=== PATIENT | male | born 1950 | race African-American/Black ===

== ENCOUNTER 2016-07-15 01:32 | Inpatient (IN) ==
[2016-07-15] MEDS ORDERED: ASPIRIN PO STA (01:57)
[2016-07-15 02:37] LABS: MANUAL DIFF NEEDED? NO
[2016-07-15 02:55] LABS: INR 1.02; PROTIME 10.7 Seconds (9.2-11.7); PTT 26.5 Seconds (22.0-36.0)
[2016-07-15] MEDS ORDERED: LASIX IV ONE (02:57)
[2016-07-15 03:04] LABS: BASO% 0.2 % (0.0-0.8); EOS# 0.05 X1000 (0.0-0.7); EOS% 0.4 % (0.0-10.0); HEMATOCRIT 33.8 % (42.0-52.0); IMM GRAN# 0.06 X1000 (0.0-0.04); IMM GRAN% 0.5 % (0.0-0.5); LYMPH# 1.25 X1000 (1.2-3.4); LYMPH% 9.9 % (20.5-51.1); MCH 30.1 PG (27-31); MCHC 32.5 g/dL (33-37); MCV 92.6 FL (81-99); MONO# 1.03 X1000 (0.11-0.59); MONO% 8.2 % (1.7-9.3); MPV 10.3 FL (7.4-10.4); NEUT% 80.8 % (42.2-75.2); PLT 279 X1000 (130-400); RBC 3.65 XMIL (4.7-6.1)
[2016-07-15 03:09] LABS: AGAP 14; ALBUMIN 3.4 g/dL (3.5-5.0); ALKALINE PHOSPHATASE 277 U/L (32-122); BUN 26 mg/dL (8-22); CALCIUM 8.9 mg/dL (8.8-10.2); CHLORIDE 102 mmol/L (98-107); CK PROFILE 67 U/L (24-204); COSMO 289; GOT 123 U/L (10-34); GPT 108 U/L (10-44); MAGNESIUM 1.9 mg/dL (1.5-2.7); POTASSIUM 3.9 mmol/L (3.5-5.1); SODIUM 142 mmol/L (136-145); TCO2 26 mmol/L (25-35); TOTAL BILIRUBIN 0.37 mg/dL (0.20-1.00); TOTAL PROTEIN 6.2 g/dL (6.3-8.3)
[2016-07-15] MEDS ORDERED: MORPHINE ONE (04:47)
[2016-07-15] MEDS ORDERED: MORPHINE IV ONE (04:53)
--- NOTE | 2016-07-15 04:54 | PROVIDER DOCUMENTATION ---
This chart was entered by Leandro Jain Scribe, acting as scribe for Luisito Elias MD. HPI-Respiratory General - General Chief Complaint: Shortness of Breath Stated Complaint: SOB Time Seen by Provider: 07/15/16 02:04 Source: patient, family Allergies/Adverse Reactions: Patient Allergies Allergy/AdvReac Type Severity Reaction Status Date / Time No Known Allergies Allergy Verified 07/15/16 02:14 Home Medications: Home Medication List Medication Instructions Recorded Confirmed Last Taken Type Hydralazine [Apresoline] 25 mg PO Q8H 11/23/13 06/04/15 11/22/13 20:30 History Morphine E.r. [Ms Contin] 35 mg PO Q12HR 11/23/13 06/04/15 05/30/15 History Temazepam 15 mg PO HS PRN 11/23/13 06/04/15 06/04/15 21:00 History Hydrocodone/Acetaminophen [Maxwell 1 mg PO BID 06/04/15 06/04/15 06/04/15 History 10-325 Tablet] Levofloxacin [Levaquin] 750 mg PO DAILY #10 tablet 06/07/15 Unknown Rx Metronidazole [Flagyl] 500 mg PO Q8H #30 tablet 06/07/15 Unknown Rx - History of Present Illness-Resp Nature of Presenting Problem: Pt is a 66 yom who presents to ER with CC of difficulty breathing. Pt reports hx of adrenal cancer, COPD, CHF, and HTN. Pt complains tonight of shortness of breath and difficulty breathing that had a gradual onset. Quality of Pain: reports: none Severity in ED: reports: severe Onset/Duration: reports: just prior to arrival Timing: reports: still present Associated Symptoms: reports: chest pain/soreness, heart racing, hyperventilating, shortness of breath, short of breath, wheezing. denies: cough , dizziness, earache, facial pain, fever/chills, flu-like symptoms, headache, hurts to breathe, lightheadedness, muscle/bodyaches, nasal congestion, nasal drainage, sinus pain, sore throat, sweaty Similar Symptoms Previously?: Yes Recently seen or treated by another doctor?: Yes Review of Systems - Adult - REVIEW OF SYSTEMS - ADULT Constitutional: denies: chills, fever, fatique, night sweats, weight gain, weight loss Eyes: reports: no symptoms reported Ears, Nose, Mouth & Throat: reports: no symptoms reported Cardiovascular: reports: edema. denies: chest pain, heart murmur, irregular heart rate, orthopnea, palpitations, poor circulation, PND, syncope Respiratory: reports: chronic cough, cough, dyspnea on exertion, shortness of breath, wheezing. denies: excessive sputum production, hemoptysis, pleurisy Gastrointestinal: reports: nausea. denies: abdominal pain, hematemesis, constipation, diarrhea, difficulty swallowing, frequent heartburn, poor appetite , rectal bleeding, vomiting Genitourinary: reports: no symptoms reported Musculoskeletal: reports: no symptoms reported Integumentary: reports: no symptoms reported Neurological: reports: no symptoms reported Psychiatric: reports: no symptoms reported Endocrine: reports: no symptoms reported Hematologic/Lymphatic: reports: no symptoms reported Allergic/Immunologic: reports: no symptoms reported All Other Systems: Reviewed and Negative Past History - Adult - PAST MEDICAL HISTORY-ADULT Review of Records: reports: Nursing Assessment Review, Medications Reviewed Cardiovascular: reports: HTN Respiratory: reports: COPD Genitourinary: reports: cancer (stomach, liver) Musculoskeletal: reports: arthritis - PRIOR SURGERIES/PROCEDURES Surgical/Procedure History: reports: hernia repair, orthopedic (extremity) - PRIOR HOSPITALIZATIONS Prior Hospitalizations: reports: for similar symptoms - IMMUNIZATION STATUS Childhood Immunizations: See Nurse Assessment Flu Vaccine: See Nurse Assessment - FAMILY HISTORY Family History: reviewed, not pertinent Physical Exam-General - PHYSICAL EXAM-ADULT Initial Vital Signs Reviewed: Yes - CONSTITUTIONAL General Appearance: appears well, alert, severe distress, thin. negative: no apparent distress, mild distress, moderate distress - EYES Eyes: PERRL/EOMI, pink conjunctivae, fundi clear, no AV nicking - HEAD, EARS, NOSE, MOUTH & THROAT HENMT: normocephalic/atraumatic, moist mucous membranes, normal ENT inspection, TMs normal, pharynx normal - NECK Neck: non-tender, full range of motion, supple, normal inspection - RESPIRATORY Respiratory: chest non-tender, normal breath sounds, no pleuratic chest pain, no respiratory distress, no accessory muscle use, wheezing (diffuse). negative : lungs clear - CARDIOVASCULAR Cardiovascular: normal peripheral pulses, tachycardia, other (HTN (163/117)). negative: regular rate, rhythm, bradycardia, irregularly irregular - GASTROINTESTINAL (ABDOMEN) Abdominal Exam: normal bowel sounds, non tender, soft, no pulsatile mass, hepatomegaly. negative: no organomegaly - MUSCULOSKELETAL Back Exam: normal inspection, no CVA tenderness, no vertebral tenderness, other (4+ saccral pitting edema). negative: CVA tenderness, decreased range of motion , ecchymosis, muscle spasm, swelling, vertebral tenderness Extremity: normal range of motion, non-tender, normal gait, normal inspection, no pedal edema, no calf tenderness, normal capillary refill, swelling (4+ pitting edema bilateral lower extremities). negative: deformity, erythema, inflammation, tenderness - SKIN Integumentary: normal color, normal turgor, warm/dry. negative: abrasion(s), diaphoresis, ecchymosis, erythema, laceration(s), swelling, tenderness, warm - NEUROLOGIC Neurologic: studio model II-XII nml as tested, grossly normal, no motor/sensory deficits . negative: facial droop, focal weakness, motor weakness, sensory deficit - PSYCHIATRIC Psych/Mental Status: normal thought content, normal thought process, oriented x 3, anxious. negative: normal mood/affect Progress - PLAN OF CARE/RESULTS Progress/Plan/Lab Results: Vital Signs - 8 hr 07/15/16 01:38 07/15/16 03:42 Temperature 97.9 F Pulse Rate 102 H 103 H Respiratory Rate 26 H 27 H Blood Pressure 146/116 129/100 O2 Sat by Pulse Oximetry 96 95 Laboratory Results - last 24 hr 07/15/16 07/15/16 07/15/16 02:03 02:03 02:03 WBC 12.62 H RBC 3.65 L Hgb 11.0 L Hct 33.8 L MCV 92.6 MCH 30.1 MCHC 32.5 L RDW Std Deviation 18.0 H Plt Count 279 MPV 10.3 Immature Gran % (Auto) 0.5 Neut % (Auto) 80.8 H Lymph % (Auto) 9.9 L [place] % (Auto) 8.2 Eos % (Auto) 0.4 Baso % (Auto) 0.2 Immature Gran # (Auto) 0.06 H Neut # (Auto) 10.21 H Lymph # (Auto) 1.25 [place] # (Auto) 1.03 H Eos # (Auto) 0.05 Baso # (Auto) 0.02 PT INR PTT (Actin FS) D-Dimer 3.57 H Sodium 142 Potassium 3.9 Chloride 102 Carbon Dioxide 26 Anion Gap 14 BUN 26 H Creatinine 0.8 Estimated GFR/1.73 m2 > 60 BUN/Creatinine Ratio 33 Glucose 117 H Calculated Osmolality 289 Calcium 8.9 Magnesium 1.9 Total Bilirubin 0.37 AST 123 H ALT 108 H Alkaline Phosphatase 277 H Creatine Kinase 67 Troponin T Nno-G-Bdzyskblkoe Pept Total Protein 6.2 L Albumin 3.4 L Globulin 2.8 Albumin/Globulin Ratio 1.2 07/15/16 07/15/16 07/15/16 02:03 02:03 02:03 WBC RBC Hgb Hct MCV MCH MCHC RDW Std Deviation Plt Count MPV Immature Gran % (Auto) Neut % (Auto) Lymph % (Auto) [place] % (Auto) Eos % (Auto) Baso % (Auto) Immature Gran # (Auto) Neut # (Auto) Lymph # (Auto) [place] # (Auto) Eos # (Auto) Baso # (Auto) PT 10.7 INR 1.02 PTT (Actin FS) 26.5 D-Dimer Sodium Potassium Chloride Carbon Dioxide Anion Gap BUN Creatinine Estimated GFR/1.73 m2 BUN/Creatinine Ratio Glucose Calculated Osmolality Calcium Magnesium Total Bilirubin AST ALT Alkaline Phosphatase Creatine Kinase Troponin T 0.020 Ndx-K-Xzaaxpxrygu Pept 6006 H Total Protein Albumin Globulin Albumin/Globulin Ratio Orders Category Date Time Status Cardiac Monitoring DIRECTED Care 07/15/16 01:58 Active Oxygen Therapy- ED Nursing DIRECTED Care 07/15/16 01:58 Active Saline Loc NOW Care 07/15/16 01:58 Active ANGIOGRAM/PULMONARY ARTERIES [CT] Stat Exams 07/15/16 03:43 Taken CHEST-PORTABLE [RAD] Stat Exams 07/15/16 01:58 Taken CBC WITH ELECTRONIC DIFF [HEME] Stat Lab 07/15/16 02:03 Completed CK PROFILE [SP CHEM] Stat Lab 07/15/16 02:03 Completed COMPREHENSIVE METABOLIC PANEL [CHEM] Stat Lab 07/15/16 02:03 Completed D-DIMER [CHEM] Stat Lab 07/15/16 02:03 Completed MAGNESIUM [CHEM] Stat Lab 07/15/16 02:03 Completed PRO B-NATRIURETIC PEPTIDE Stat Lab 07/15/16 02:03 Completed PROTIME WITH INR [COAG] Stat Lab 07/15/16 02:03 Completed PTT [COAG] Stat Lab 07/15/16 02:03 Completed TROPONIN T Stat Lab 07/15/16 02:03 Completed Aspirin Med 07/15/16 01:57 Discontinued 325 mg PO STAT STA Furosemide [Lasix] Med 07/15/16 02:57 Discontinued 40 mg IV NOW ONE EKG [EKG] Stat Ther 07/15/16 01:40 Ordered Result Diagrams: 07/15/16 02:03 07/15/16 02:03 - XRAY 1 XRAY: Bilateral XRAY Study: Chest Impression: See EMR Report XRAY Interpretation: Mild CHF Departure - Departure Time of Disposition Decision: 04:52 DIAGNOSIS: Anasarca, CHF (congestive heart failure), NYHA class III Adrenal carcinoma Qualifiers: Laterality: right Qualified Code(s): C74.91 - Malignant neoplasm of unspecified part of right adrenal gland Disposition: ADMITTED INPATIENT 09 Certified Medical Emergency: Emergent Condition: Poor Referrals and Follow-Ups: Sun Waller [Primary Care Provider] - This chart was documented by the indicated scribe, (Leandro Jain Scribe) and accurately reflects the services I performed and decisions made by , Luisito Elias MD, as attested by the provider's signature.
[2016-07-15] MEDS ORDERED: DUONEB (A & A) INH ONE (04:56)
[2016-07-15] MEDS ORDERED: ZOFRAN IV PRN (06:56)
[2016-07-15] MEDS ORDERED: TYLENOL PO PRN ×2 (06:56→07:31)
--- NOTE | 2016-07-15 07:24 | Diag Imaging Result Document ---
PROCEDURE NAME: CHEST-PORTABLE - 07/15/2016 PORTABLE CHEST: COMPARISON: Compared to 06/04/2015. FINDINGS: The lungs are well expanded. The heart is borderline mildly prominent. I believe there is a small left effusion. There are several old left rib fractures. No contusions or pneumothoraces. There is vascular distention. IMPRESSION: Pulmonary edema with mild cardiomegaly.
[2016-07-15] MEDS ORDERED: NORCO-10 PO PRN (07:26)
--- NOTE | 2016-07-15 08:00 | Diag Imaging Result Document ---
PROCEDURE NAME: ANGIOGRAM/PULMONARY ARTERIES - 07/15/2016 CT CHEST WITH INTRAVENOUS CONTRAST: FINDINGS: There is a small to moderate-sized left-sided pleural effusion measuring 3.1 cm posteriorly and inferiorly in the midline. There is a smaller right pleural effusion measuring 8 mm. No thoracic aortic aneurysm or dissection. The heart is enlarged. Normal opacification of the pulmonary arteries and their major branches. No filling defects identified. The vasculature is distended. There are small mediastinal lymph nodes. There small calcified left hilar lymph nodes with a calcified granuloma in the left lower lobe. There are healing fractures to the posterior left 3rd through 11th ribs. No pneumothoraces. Questionable mild superior endplate compression fracture to the T11 vertebra. Limited images through the upper abdomen reveal an enlarged liver with multiple hypodense masses in the right lobe. One of these measures 10 cm and has peripheral calcifications. There is diffuse body wall edema. IMPRESSION: 1. No pulmonary emboli. 2. Hepatic masses concerning for primary or secondary malignancy. 3. Mild cardiomegaly with pleural effusions and vascular distension as well as body wall edema. 4. Multiple healing left rib fractures. A preliminary report was given at 4:40 a.m. MTDD
[2016-07-15] MEDS: LOVENOX SUBQ SCH (08:11)
[2016-07-15] MEDS: MS CONTIN PO SCH ×2 (08:12→21:39)
[2016-07-15] MEDS: LASIX IV SCH ×2 (08:12→16:42)
[2016-07-15] MEDS: LOPRESSOR PO SCH ×2 (08:12→21:39)
[2016-07-15] MEDS ORDERED: MS CONTIN PO SCH (09:00)
--- NOTE | 2016-07-15 09:10 | HISTORY AND PHYSICAL ---
PRIMARY CARE PROVIDER: Dr. Sun Waller. ONCOLOGIST: Dr. Odalis Weber. CHIEF COMPLAINT: Shortness of breath. HISTORY OF PRESENT ILLNESS: Mr. Mendosa is a 66-year-old, male with a past medical history most notable for hypertension and adrenocortical carcinoma with liver metastasis. The patient was recently admitted at [facility] at the beginning of May of 2016 after being thrown off a horse. He was admitted for a C5-C6 cervical fracture as well as left 4th through 12th rib fractures. During this admission, the patient did have an acute episode of congestive heart failure. Prior to this episode, he did not have any previous history of CHF. The patient states that since being discharged from the hospital, for the past 2-3 weeks that he has noticed that he has had some swelling in his legs as well as some shortness of breath on exertion, though he states that over the past 2-3 days that this has become significantly worse to where, with any slight movement or exertion, he would become very short of breath. The patient also reports some dizziness as well. Though he denies any chest pain, he does report a fullness type feeling in his epigastric area. He also reports a recent weight gain of 12 pounds. He denies any headache, chest pain, abdominal pain, nausea, vomiting, dysuria, or urinary frequency. He does report some diarrhea. Other than the swelling in his extremities, he denies any other pain , numbness, or tingling in the extremities. The patient reports that Dr. Weber is who he sees for his adrenal carcinoma. Though he did receive some radiation therapy in the past, at this time, he has opted not to receive any further treatment. They are treating him symptomatically. He does take Whiteside 10 mg as well as MS Contin for pain at present. He also does wear oxygen at home as needed as well as at night. Upon evaluation in the ER, the patient was found to be dyspneic with JVD noted as well as 3+ pitting edema noted in the bilateral lower extremities from approximately the bilateral knees down. He was also found to have an elevated D-dimer of 3.57. A CTA of the chest was performed which showed no pulmonary embolus, though it did show pulmonary edema and bilateral pleural effusions as well as an ill-defined liver mass. At this time, we will admit the patient for further treatment and evaluation of his congestive heart failure. REVIEW OF SYSTEMS: A 12 point review of systems was conducted with the patient. All were negative except for pertinent positives mentioned above in the HPI. PAST MEDICAL HISTORY: 1. 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 2. Hypertension. 3. Chronic pain. 4. Iron deficiency. 5. Recent new onset of CHF. 6. Recent trauma with injury and fracture to C5 and C6 as well as rib fractures on the left, 4th through 12th, in early May of 2016. PAST SURGICAL HISTORY: 1. Hernia repair. 2. Knee surgery. 3. Thyroidectomy. SOCIAL HISTORY: The patient has a 40 year history of smoking. He currently smokes a half a pack of cigarettes per day. He reports that he occasionally drinks alcohol and occasionally smokes marijuana as well. FAMILY HISTORY: Positive for his father having a history of cirrhosis of the liver as well as diabetes mellitus. He also has a brother with diabetes mellitus. ALLERGIES: Patient has no known allergies. HOME MEDICATIONS: 1. MS Contin 30 mg p.o. q.12 hours. 2. Potassium chloride 20 mEq p.o. daily. 3. Whiteside 10 mg p.o. b.i.d. 4. Lasix 20 mg p.o. b.i.d. DIAGNOSTIC DATA: Laboratory results: White blood cell count 12.62, hemoglobin 11, hematocrit 33.8, platelet count is 279,000. PT 10.7, INR is 1.02, PTT is 26.5, D-dimer 3.57. Sodium 142, potassium 3.9, chloride 102, bicarb is 26, BUN is 26, with a creatinine of 0.8, glucose 117, calcium 8.9, magnesium 1.9. Total bilirubin was 0.37, AST 123, ALT 108, alkaline phosphatase is 277. CK 67, troponin is 0.02. ProBNP is 6006. A chest x-ray shows pulmonary edema with mild cardiomegaly per radiologist. EKG showed a sinus tachycardia with a short NH and occasional premature ventricular complexes at a rate of 114 with a QTc of 515. CTA of the chest showed no pulmonary emboli. Cardiomegaly. Pulmonary edema. Bilateral pleural effusions, left greater than right. Also noted was diffuse body wall edema. Large ill-defined liver masses concerning for primary hepatocellular carcinoma or metastatic disease. Mild age- indeterminate T11 vertebral body compression fracture and multiple healing left rib fractures. PHYSICAL EXAMINATION: VITAL SIGNS: Temperature 97.5 degrees, heart rate 104, respirations 20, blood pressure 140/102, oxygen saturation is 95% on nasal cannula at 3 L. GENERAL: Mr. Mendosa is a pleasant, 66-year-old, male, who is resting on the ER stretcher. He was in no acute distress. He was awake, alert, and able to answer all questions appropriately. HEENT: Head is atraumatic, normocephalic. Pupils were equal, round, reactive to light, 3 mm bilaterally and brisk. Subconjunctivae were pink. Oral mucosa is moist. Oropharynx clear. NECK: Supple. Trachea midline. There is JVD noted upon examination. No carotid bruits noted upon auscultation bilaterally. CARDIOVASCULAR: Patient has normal S1, S2. No murmurs, gallops, or rubs appreciated with a slightly tachycardic rate that is regular. PULMONARY: Patient has symmetrical chest expansion bilaterally. Lung sounds in the upper lung white did have wheezing noted. Lower lung white were diminished. ABDOMEN: The patient's abdomen was slightly firm and nontender, though he is distended. Upon palpation, the patient's liver is enlarged. Bowel sounds were present in all 4 quadrants, were normoactive. EXTREMITIES: The patient does have 3+ pitting edema noted in bilateral lower extremities from approximately the knee down. Due to swelling, pedal pulses were difficult to palpate, though dorsalis pedis as well as posterior tibialis were easily obtained with the venous Doppler. Pulse, motor, and sensory were intact in all extremities as well. INTEGUMENTARY: The patient's skin color was normal for his race. It was warm, dry, and intact. No lesions or sores noted. NEUROLOGICAL: Patient is alert and oriented to person, place, time, and situation. Cranial nerves 2-12 are grossly intact. ASSESSMENT AND PLAN: 1. Congestive heart failure exacerbation. The patient did receive 40 mg of Lasix in the emergency room. We will continue with 40 mg of Lasix intravenous every [address] the patient on metoprolol 25 mg by mouth twice a day. We have placed an order for an echocardiogram in the morning as well as a cardiology consult. We will do a series of cardiac enzymes and repeat an electrocardiogram later on this afternoon. We have also put a request in for the patient's medical records from his recent admission at [facility] in [place] as well. We will continue to follow. 2. Hypertension. We will continue the patient's metoprolol as mentioned for #1 and continue to follow. 3. 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 At this time, as previously mentioned, patient is followed by Dr. Weber. He is currently receiving symptomatic treatment. We will continue his pain medications. We have placed a consult for Dr. Weber as well. 4. Chronic obstructive pulmonary disease. We will continue the patient's home oxygen therapy as well as a scheduled DuoNeb treatments every 4 hours. 5. Tobacco abuse dependency. We will continue to substance abuse counselor the patient on importance of smoking cessation during his admission. The patient be placed on CIC with telemetry. He will have vital signs every 4 hours. Deep venous thrombosis prophylaxis will be provided with Lovenox 40 mg subcutaneously every 24 hours. We will do strict intake and output, and daily weights. Pending labs at this time are urinalysis. Pending diagnostic studies are an echocardiogram and venous Doppler of bilateral lower extremities. As previously mentioned, the patient's D-dimer was elevated. His CTA was negative for pulmonary embolism, though we are awaiting his results from his venous ultrasound of his bilateral lower legs to rule out any deep venous thrombosis. We will continue to follow. Further orders and recommendations pending the hospital course, diagnostic studies, and physician evaluation. Dictated by DELBERT Blevins for Brandy Loving MD I examined pt and discussed case with ENTRY EXAMINER cc: Brandy Loving MD MTDD
[2016-07-15] MEDS: DUONEB (A & A) INH SCH ×5 (09:39→23:52)
[2016-07-15 16:48] LABS: URINE CULTURE NEEDED? NO; URINE MICRO REVIEW NEEDED? NO; URINE SOURCE CLEAN CATCH
[2016-07-15 16:51] LABS: BILIRUBIN URINE NEGATIVE (NEGATIVE); BLOOD URINE NEGATIVE (NEGATIVE); COLOR YELLOW; GLUCOSE URINE NEGATIVE (NEGATIVE); LEUKOCYTES URINE NEGATIVE (NEGATIVE); NITRITE URINE NEGATIVE (NEGATIVE); PH URINE 5.5; PROTEIN URINE 30 mg/dL (NEGATIVE); SP GRAVITY URINE 1.032; TURBIDITY URINE CLEAR (CLEAR); UR EPITHELIAL CELLS <10 /HPF (<10); URINE BACTERIA NEGATIVE /HPF; URINE WBC <10 /HPF (<10); UROBILINOGEN URINE NORMAL (NORMAL)
--- NOTE | 2016-07-15 20:58 | CONSULTATION ---
DATE OF CONSULTATION: 07/15/2016 IMPRESSION: 1. Acute congestive heart failure, etiology not defined. 2. Adrenocortical carcinoma with liver metastasis. 3. Hypertension. RECOMMENDATIONS: 1. Diuresis with intravenous Lasix. 2. Echocardiography/Doppler study. 3. Conservative cardiovascular management overall. HISTORY: This 66-year-old -[place] male with past history of hypertension and metastatic adrenocortical carcinoma to the liver was admitted for further management of progressive dyspnea and diagnosis of congestive heart failure. He was recently admitted in May after being thrown off a horse with cervical spine injury as well as rib fractures. He reportedly had an episode of congestive heart failure during his hospital stay. The last 2 weeks he has had exertional dyspnea as well as progressive swelling in the lower extremities. There has been no orthopnea. He has had no chest pain. He came in for evaluation and has been started on intravenous diuretics. Chest CT scan reported no evidence of pulmonary embolus. He is not aware of any previous cardiac problems prior to recently. There is no history of myocardial infarction or coronary disease. PAST MEDICAL HISTORY: 1. Hypertension. 2. Adrenocortical carcinoma with metastasis to the right lobe of the liver. 3. Iron deficiency. 4. Recent traumatic injury with neck injury and rib fractures. PAST SURGICAL HISTORY: Includes. Hernia repair, left knee surgery to repair traumatic injury and removal of thyroid goiter. ALLERGIES: No known drug allergies. SOCIAL HISTORY: He has history of longstanding cigarette use and currently smokes half-pack of cigarettes per day. He drinks occasional beer. He may occasionally smoke marijuana. FAMILY HISTORY: Negative for premature coronary disease. REVIEW OF SYSTEMS: Pulmonary: Noteworthy for exertional dyspnea. Negative for cough. Gastrointestinal: Negative beyond history of present illness. Constitutional: Negative beyond history of present illness. Remainder review of systems negative beyond history of present illness with 14 total systems reviewed. PHYSICAL EXAMINATION: General: This is a thin, older, male, in no distress. Vital Signs: As recorded are stable. HEENT: Extraocular movements appear intact. Mucous membranes are moist. Neck: Supple. External jugular veins appear distended whereas internal jugular veins are difficult to appreciate. Chest: Auscultation of the chest reveals bibasilar inspiratory crackles and few expiratory wheezes. Cardiac Exam: Reveals a regular rate and rhythm without appreciable murmur or gallop. Abdomen: Soft. There is obvious mass just below right lateral costal margin. There is no evidence of ascites. Extremities: Demonstrate 3+ pretibial edema. Neurologic: Reveals him to be alert and fully oriented. Speech is fluent. Moves all 4 extremities equally well. DIAGNOSTIC DATA: ECG demonstrates sinus tachycardia, low voltage in limb leads, left axis deviation and nonspecific ST and T-wave abnormality. cc: Miguel Damon MD
[2016-07-16] MEDS: LASIX IV SCH ×3 (00:04→15:33)
--- NOTE | 2016-07-16 02:32 | ECHO REPORT ---
ORDER DATE: 07/15/2016 MEASUREMENTS: Left atrium 4.6, aortic root 3.1. SUMMARY: 1. Adequate quality study. 2. Trileaflet aortic valve opens normally on 2-dimensional images. Peak instantaneous gradient across the aortic valve is 6 mmHg. There is mild aortic regurgitation. Mild thickening of anterior mitral leaflet and posterior mitral leaflets demonstrated. There is moderate mitral regurgitation. Tricuspid and pulmonic valves are without structural abnormality, with moderate tricuspid regurgitation and mild pulmonic regurgitation. The estimated systolic PA pressure by Doppler is approximately 55 mmHg. The aortic root is normal in size. 3. Mild left ventricular enlargement, with mild concentric left hypertrophy demonstrated on 2- dimensional images. The estimated left ventricular ejection fraction is 20%, with global hypokinesis, mild septal dyskinesis, and inferior akinesis. Left atrium is moderately enlarged. The right atrium is of normal size. The right ventricle is mildly enlarged, with mildly reduced right ventricular systolic function. 4. No pericardial effusion. 5. Left pleural effusion demonstrated. 6. Appearance of inferior vena cava suggests elevated central venous pressure. CONCLUSIONS: 1. Mild aortic regurgitation. 2. Moderate mitral regurgitation. 3. Moderate tricuspid regurgitation, with estimated systolic PA pressure of 55 mmHg. 4. Mild left ventricular enlargement, with mild concentric left hypertrophy, and an estimated left ventricular ejection fraction of 20%. 5. Moderate left atrial enlargement. 6. Mild right ventricular enlargement, with mildly reduced right ventricular systolic function. 7. Elevated central venous pressure is suggested. cc: Miguel Damon MD
[2016-07-16] MEDS: DUONEB (A & A) INH SCH ×6 (03:15→22:37)
[2016-07-16] MEDS: LOVENOX SUBQ SCH (06:31)
[2016-07-16 07:08] LABS: MANUAL DIFF NEEDED? NO
[2016-07-16 07:13] LABS: BASO% 0.2 % (0.0-0.8); EOS# 0.04 X1000 (0.0-0.7); EOS% 0.4 % (0.0-10.0); HEMOGLOBIN 11.4 g/dL (14.0-18.0); IMM GRAN# 0.04 X1000 (0.0-0.04); IMM GRAN% 0.4 % (0.0-0.5); LYMPH# 1.11 X1000 (1.2-3.4); LYMPH% 9.9 % (20.5-51.1); MCH 30.5 PG (27-31); MCHC 32.6 g/dL (33-37); MCV 93.6 FL (81-99); MONO# 1.34 X1000 (0.11-0.59); MPV 10.5 FL (7.4-10.4); NEUT% 77.1 % (42.2-75.2); PLT 285 X1000 (130-400); RBC 3.74 XMIL (4.7-6.1)
[2016-07-16] MEDS: KLOR-CON PO SCH (09:20)
[2016-07-16] MEDS: MS CONTIN PO SCH ×2 (09:20→21:41)
[2016-07-16] MEDS: LOPRESSOR PO SCH ×2 (09:21→21:41)
--- NOTE | 2016-07-16 15:25 | PROGRESS NOTE ---
DATE: 07/16/2016 SUBJECTIVE: This patient states that he is feeling much better. He is not complaining of shortness of breath at this moment. He is still on oxygen. He is complaining of lower extremity edema that is better compared with admission. OBJECTIVE: Vital Signs: Temperature 98.4 degrees, pulse 105, respiratory rate 19, blood pressure 145/103, oxygen saturation 100% on nasal cannula oxygen. HEENT: Head normocephalic. No trauma. PERRLA. Neck: Supple. No JVD. No masses. Central trachea. Chest: Clear to auscultation. Decreased at the bases with rales at the bases as well. Cardiovascular: RRR. Tachycardic. There is a 2/6 systolic murmur. Abdomen: Soft. Mildly distended. Nontender to palpation. Extremities: There is 3+ lower extremity edema. No clubbing. No cyanosis. Neurological: The patient is alert and oriented x3. No focal neurological deficits. LABORATORY: WBC 11.1, hemoglobin 11.4, hematocrit 35, platelets 285,000. Magnesium 1.8. ASSESSMENT AND PLAN: 1. Congestive heart failure exacerbation. This patient has been on 40 mg of Lasix IV q.8 hours. I will reduce the dose to 40 IV q.12 hours and I will continue with the same management for now. Cardiology department is following this patient. 2. Hypertension, stable. Continue with the same management. 3. 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 Dr. Weber is following this patient. 4. Chronic obstructive pulmonary disease. Not in exacerbation. We will continue with this patient's home oxygen therapy as well as respiratory treatments in-house. 5. Tobacco abuse dependency. This patient has been highly advised against tobacco abuse. I will continue with daily cessation education. cc: Ace Phelps MD
--- NOTE | 2016-07-16 19:41 | CONSULTATION ---
DATE OF CONSULTATION: 07/16/2016 REASON FOR CONSULTATION: Consultation is requested as the patient is known to us for adrenocortical carcinoma. HISTORY OF PRESENT ILLNESS: Mr. Mendosa is a pleasant 66-year-old, male who is known to us as we currently follow him for adrenocortical carcinoma, who has presented to [facility] and subsequently been admitted to the hospital for acute CHF exacerbation. We followed the patient for actually metastatic adrenocortical carcinoma with mets to the liver. The patient has decided he does not want further treatment. We continue to follow him and treat him only symptomatically. Currently the patient reports that his pain is well controlled. He reports he is also breathing better since being admitted to the hospital. PAST MEDICAL HISTORY: 1. 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 2. Hypertension. 3. Chronic pain. 4. Iron deficiency. 5. CHF. 6. Fracture and trauma to C5 and C6 as well as rib fractures in May 2016 after being thrown from a horse. PAST SURGICAL HISTORY: 1. Hernia repair. 2. Knee surgery. 3. Thyroidectomy. SOCIAL HISTORY: Patient continues to smoke daily. He smokes about half a pack of cigarettes per day for the last 40 years. He also continues to socially drink alcohol and smoke marijuana. FAMILY HISTORY: Positive for his father who had cirrhosis of the liver as well as diabetes mellitus. He has had a brother who had diabetes mellitus. REVIEW OF SYSTEMS: As per the HPI. All else is either negative or noncontributory. PHYSICAL EXAMINATION: Vital Signs: Temperature 98.4 degrees, heart rate 105, respirations 19, blood pressure 145/103, O2 saturations 100% on room air. General: This is an male, sitting up in hospital bed eating his lunch. He is in no acute distress. HEENT: Head normocephalic, atraumatic. Eyes: Pupils equal, round, reactive. Ears, nose, throat, neck, and mouth: Oral mucosa is normal. Gross auditory acuity is intact. Trachea is midline. Cardiovascular: S1-S2 heard without any murmurs, gallops, or rubs appreciated. Respiratory: Patient has wheezing throughout his lung white. No rhonchi or rales noted. Gastrointestinal: Abdomen is soft and nondistended. Nontender. Positive bowel sounds. Musculoskeletal: No obvious bony abnormalities. Extremities: The patient does have +2 pitting edema in bilateral lower extremities from approximately the knee down. Upper extremities are without any edema. Neurologic: Patient is alert and oriented x3. No focal motor deficits. LABORATORY STUDIES: White blood cells today are 11.19, hemoglobin 11.4, hematocrit 35, platelets are normal at 285. Previously his sodium is 142, potassium 3.9, chloride 102, CO2 26, BUN 26, creatinine 0.8, glucose 117, AST ALT 123 and 108 respectively, alkaline phosphatase 277, bilirubin normal at 0.37 proBNP 6006. ASSESSMENT AND PLAN: 1. Adrenocortical carcinoma with liver metastases. The patient has opted to not receive any treatment. We continue to treat him only symptomatically. He reports that his pain is currently well controlled with his current pain medications. They will be continued through his hospitalization. He will follow up with us once he is discharged for continued symptomatic monitoring. 2. Acute congestive heart failure exacerbation. He is currently receiving Lasix and has been evaluated by Cardiology. Continue per their recommendations. 3. Chronic obstructive pulmonary disease. He is receiving nebulizer treatments. He is status post CT angiogram which is negative for emboli. We want to thank you for this consult and allowing us to participate in Mr. Mendosa's care while he is here at [facility]. We will continue to follow along and adjust our treatment plan per his hospital course. Dictated by CHIRAG Mcfadden for Odalis Weber MD cc: Odalis Weber MD
[2016-07-16] MEDS: PRINIVIL PO SCH (21:44)
[2016-07-17] MEDS: DUONEB (A & A) INH SCH ×6 (03:23→23:19)
[2016-07-17] MEDS: LASIX IV SCH ×2 (04:25→16:24)
--- NOTE | 2016-07-17 04:29 | PROGRESS NOTE ---
DATE: 07/16/2016 SUBJECTIVE: The patient relates feeling better. He denies dyspnea on room air. OBJECTIVE: Vital Signs: Blood pressure 143/98, with a heart rate of 93 and regular. Neck: Jugular distention is evident, consistent with elevated central venous pressure. Chest: Auscultation of chest reveals bilateral expiratory wheezes. Cardiac Examination: Reveals a regular rate and rhythm without appreciable murmur or gallop. Abdomen: Soft, nontender. Extremities: Demonstrates 2+ pretibial edema, which is decreasing. Echocardiography reports left ventricular ejection fraction of 20%. Moderate mitral regurgitation. Moderate tricuspid regurgitation with moderate pulmonary hypertension by Doppler. There is mild right ventricular enlargement and mildly reduced right ventricular systolic function and moderate left atrial enlargement. Elevated central venous pressure is suggested. IMPRESSION: 1. Acute on chronic biventricular congestive heart failure. 2. Dilated cardiomyopathy. 3. Mitral regurgitation. 4. Hypertensive cardiovascular disease. 5. History of adenocarcinoma with liver metastasis. 6. History of fall a little more than a month ago with reported neck injury. RECOMMENDATIONS: 1. Continue diuresis with intravenous Lasix. 2. Add angiotensin-converting enzyme inhibitor. 3. Encouraged patient to comply with wearing previously recommended neck brace. cc: Miguel Damon MD
[2016-07-17 07:37] LABS: MANUAL DIFF NEEDED? NO
[2016-07-17 07:38] LABS: BASO% 0.2 % (0.0-0.8); EOS# 0.02 X1000 (0.0-0.7); EOS% 0.2 % (0.0-10.0); HEMATOCRIT 35.2 % (42.0-52.0); HEMOGLOBIN 11.2 g/dL (14.0-18.0); IMM GRAN# 0.05 X1000 (0.0-0.04); IMM GRAN% 0.5 % (0.0-0.5); LYMPH% 11.3 % (20.5-51.1); MCH 29.6 PG (27-31); MCHC 31.8 g/dL (33-37); MCV 93.1 FL (81-99); MONO# 1.05 X1000 (0.11-0.59); MONO% 10.8 % (1.7-9.3); PLT 281 X1000 (130-400); RBC 3.78 XMIL (4.7-6.1)
[2016-07-17 08:00] LABS: AGAP 14; BUN 27 mg/dL (8-22); CALCIUM 9.3 mg/dL (8.8-10.2); CHLORIDE 99 mmol/L (98-107); COSMO 289; POTASSIUM 3.9 mmol/L (3.5-5.1); SODIUM 142 mmol/L (136-145); TCO2 29 mmol/L (25-35)
[2016-07-17] MEDS: MS CONTIN PO SCH (08:19)
[2016-07-17] MEDS: PRINIVIL PO SCH (08:20)
[2016-07-17] MEDS: KLOR-CON PO SCH (08:20)
[2016-07-17] MEDS: LOVENOX SUBQ SCH (08:21)
[2016-07-17] MEDS: LOPRESSOR PO SCH (08:21)
--- NOTE | 2016-07-17 13:37 | PROVIDER DOCUMENTATION ---
HPI-Abdominal Pain/GI Problem - General Chief Complaint: Shortness of Breath Stated Complaint: SOB Time Seen by Provider: 07/15/16 02:04 Allergies/Adverse Reactions: Patient Allergies Allergy/AdvReac Type Severity Reaction Status Date / Time No Known Allergies Allergy Verified 07/15/16 02:14 Home Medications: Home Medication List Medication Instructions Recorded Confirmed Last Taken Type Morphine E.r. [Ms Contin] 30 mg PO Q12HR 11/23/13 07/15/16 05/30/15 History Hydrocodone/Acetaminophen [[place] 1 mg PO BID 06/04/15 07/15/16 06/04/15 History 10-325 Tablet] Furosemide [Lasix] 20 mg PO BID 07/15/16 07/15/16 07/14/16 14:00 History Potassium Chloride 20 meq PO DAILY 07/15/16 07/15/16 07/14/16 08:00 History Past History - Adult - PAST MEDICAL HISTORY-ADULT Major Childhood Illnesses: reports: denies history Cardiovascular: reports: HTN Respiratory: reports: COPD Gastrointestinal: reports: denies history Obstetrical/Gynecological: reports: denies history Genitourinary: reports: cancer (stomach, liver) Musculoskeletal: reports: arthritis Neurological: reports: denies history Endocrine/Immune: reports: denies history Other Conditions: reports: denies history - PRIOR SURGERIES/PROCEDURES Surgical/Procedure History: reports: hernia repair, orthopedic (extremity) - PRIOR HOSPITALIZATIONS Prior Hospitalizations: reports: for similar symptoms - IMMUNIZATION STATUS Childhood Immunizations: See Nurse Assessment Flu Vaccine: See Nurse Assessment - FAMILY HISTORY Family History: reviewed, not pertinent Progress - PLAN OF CARE/RESULTS Progress/Plan/Lab Results: Orders Category Date Time Status Admit - [facility] Routine AdmDCTranf 07/15/16 06:56 Ordered Activity - Up with Assistance ORDERED Care 07/15/16 06:56 Active Cardiac Monitoring DIRECTED Care 07/15/16 01:58 Completed Daily Weights 0500 Care 07/15/16 06:56 Active Intake and Output-Strict Q 8-HR ASSESS Care 07/15/16 06:56 Active Medical Records [Old records/chart to unit] .From other Care 07/15/16 06:56 Active facility Nursing- MD Consult Request ROUTINE Care 07/15/16 06:56 Completed Oxygen Therapy- ED Nursing DIRECTED Care 07/15/16 01:58 Completed Saline Loc DIRECTED Care 07/15/16 06:56 Active Saline Loc NOW Care 07/15/16 01:58 Completed Vital Signs Order Q 4-HR ASSESS Care 07/15/16 06:56 Active Weight on Admission ORDERED Care 07/15/16 06:56 Active Physician/Provider Consults Routine Cons 07/15/16 08:00 Ordered ANGIOGRAM/PULMONARY ARTERIES [CT] Stat Exams 07/15/16 03:43 Completed CHEST-PORTABLE [RAD] Stat Exams 07/15/16 01:58 Completed CBC WITH DIFF [HEME] Routine Lab 07/16/16 06:45 Completed CBC WITH ELECTRONIC DIFF [HEME] Stat Lab 07/15/16 02:03 Completed CK PROFILE [SP CHEM] Q8H Lab 07/15/16 10:30 Completed CK PROFILE [SP CHEM] Q8H Lab 07/15/16 18:07 Completed CK PROFILE [SP CHEM] Stat Lab 07/15/16 02:03 Completed COMPREHENSIVE METABOLIC PANEL [CHEM] Stat Lab 07/15/16 02:03 Completed D-DIMER [CHEM] Stat Lab 07/15/16 02:03 Completed MAGNESIUM [CHEM] Routine Lab 07/16/16 06:45 Completed MAGNESIUM [CHEM] Stat Lab 07/15/16 02:03 Completed PRO B-NATRIURETIC PEPTIDE Stat Lab 07/15/16 02:03 Completed PROTIME WITH INR [COAG] Stat Lab 07/15/16 02:03 Completed PTT [COAG] Stat Lab 07/15/16 02:03 Completed TROPONIN T Q8H Lab 07/15/16 10:30 Completed TROPONIN T Q8H Lab 07/15/16 18:07 Completed TROPONIN T Stat Lab 07/15/16 02:03 Completed URINALYSIS W/POSS RFLX CULT [URINALYSIS] Stat Lab 07/15/16 16:30 Completed Acetaminophen [Tylenol] Med 07/15/16 06:56 Discontinued 650 mg PO Q6H PRN PRN Albuterol 2.5MG/Ipratrop 0.5MG [Duoneb (A & A)] Med 07/15/16 07:30 Active 3 ml INH RTQ4H Albuterol 2.5MG/Ipratrop 0.5MG [Duoneb (A & A)] Med 07/15/16 04:56 Discontinued 9 ml INH NOW ONE Aspirin Med 07/15/16 01:57 Discontinued 325 mg PO STAT STA Furosemide [Lasix] Med 07/15/16 02:57 Discontinued 40 mg IV NOW ONE Furosemide [Lasix] Med 07/15/16 09:00 Discontinued 40 mg IV Q8H Morphine Med 07/15/16 04:47 Discontinued 2 mg .ROUTE .STK-MED ONE Morphine Med 07/15/16 04:53 Discontinued 2 mg IV NOW ONE Morphine E.r. [Ms Contin] Med 07/15/16 09:00 Discontinued 35 mg PO Q12HR Ondansetron [Zofran] Med 07/15/16 06:56 Active 4 mg IV Q4H PRN PRN Aerosol Treatments Routine Oth 07/15/16 04:56 Completed Aerosol Treatments Routine Oth 07/15/16 06:56 Completed Aerosol Treatments Stat Oth 07/15/16 04:56 Completed Aerosol Treatments Stat Oth 07/15/16 06:56 Completed Oxygen Device Routine Oth 07/15/16 06:56 Completed Venous U/S Bilateral Legs Routine Ther 07/15/16 08:00 Completed Transfer/Admit Order [TRANSFER] Routine Transfer 07/15/16 05:55 Completed Result Diagrams: 07/17/16 07:25 07/17/16 07:25 Departure - Departure DIAGNOSIS: Anasarca, CHF (congestive heart failure), NYHA class III Adrenal carcinoma Qualifiers: Laterality: right Qualified Code(s): C74.91 - Malignant neoplasm of unspecified part of right adrenal gland Disposition: ADMITTED INPATIENT 09 Condition: Poor
--- NOTE | 2016-07-17 16:01 | PROGRESS NOTE ---
DATE: 07/17/2016 SUBJECTIVE: This patient states that he is feeling much better. He is complaining of lower extremity edema but he is breathing fine. He denies nausea, vomiting, diarrhea, constipation, shortness of breath or chest pain. OBJECTIVE: Vital Signs: Temperature 97.7 degrees, pulse 91, respiratory rate 20, blood pressure 144/97, O2 saturation 100% on 2 L of nasal cannula. HEENT: Head normocephalic. No trauma. PERRLA. Neck: Supple. No JVD. No masses. Central trachea. Chest: Clear to auscultation. Decreased breath sounds at the bases with some rales. Cardiovascular: RRR. 2/6 systolic murmur. Abdomen: Soft, mild distended, nontender to palpation. Extremities: 3+ lower extremity edema. No clubbing. No cyanosis. Neurological: The patient is alert and oriented x3. No focal neurological deficits. LABORATORY: WBC 9.7, hemoglobin 11.2, hematocrit 35.2, platelets 281,000. Sodium 142, potassium 3.9, chloride 98, bicarbonate 29, BUN 27, creatinine 0.8. Glucose 117. Calcium 9.3. ASSESSMENT AND PLAN: 1. Congestive heart failure exacerbation. Continue with Lasix twice a day 40. Cardiology Department is following this patient. He is feeling better. 2. Hypertension, stable. Continue with the same management. 3. 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 Aware. Dr. Weber is following this patient. 4. COPD not in exacerbation. Continue with the same management. 5. Tobacco abuse dependency. This patient has been highly advised against tobacco abuse. I will continue with daily cessation education. cc: Ace Phelps MD
[2016-07-17] MEDS: DIOVAN PO SCH (16:25)
--- NOTE | 2016-07-17 16:38 | PROGRESS NOTE ---
DATE: 07/17/2016 CARDIOLOGY FOLLOWUP NOTE: SUBJECTIVE: Patient denies shortness of breath or chest discomfort. OBJECTIVE: Vital Signs: Blood pressure 144/97, heart rate 91 and regular, oxygen saturation 100% on nasal cannula. Neck: Jugular venous distention is present consistent with elevated central venous pressure. Chest: Auscultation of the chest reveals a few scattered expiratory wheezes. Cardiac Exam: Regular rate and rhythm without appreciable murmur or gallop. Extremities: Demonstrate 2+ pretibial pitting edema. IMPRESSION: 1. Acute on chronic systolic heart failure, improved with diuresis. 2. Dilated cardiomyopathy. 3. Mitral regurgitation. 4. Hypertensive cardiovascular disease. 5. History of adenocarcinoma. 6. 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 RECOMMENDATIONS: 1. Adjust beta-sandra and switch to Coreg 6.25 mg twice daily. 2. Transition to angiotensin receptor blocking agent Valsartan. 3. Continue diuresis with intravenous Lasix. cc: Miguel Damon MD
[2016-07-17] MEDS: COREG PO SCH (21:38)
[2016-07-18] MEDS: MS CONTIN PO SCH ×3 (01:10→09:08)
[2016-07-18] MEDS: DUONEB (A & A) INH SCH ×6 (03:49→23:07)
[2016-07-18] MEDS: LASIX IV SCH ×3 (04:42→22:31)
[2016-07-18 07:02] LABS: AGAP 13; BUN 30 mg/dL (8-22); CALCIUM 9.2 mg/dL (8.8-10.2); CHLORIDE 100 mmol/L (98-107); COSMO 290; POTASSIUM 4.3 mmol/L (3.5-5.1); SODIUM 142 mmol/L (136-145); TCO2 29 mmol/L (25-35)
[2016-07-18] MEDS: COREG PO SCH ×2 (09:08→20:34)
[2016-07-18] MEDS: DIOVAN PO SCH (09:08)
[2016-07-18] MEDS: LOVENOX SUBQ SCH (09:12)
[2016-07-18] MEDS: KLOR-CON PO SCH (09:13)
--- NOTE | 2016-07-18 11:35 | PROGRESS NOTE ---
DATE: 07/18/2016 SUBJECTIVE: This patient states that he is feeling better. He is still complaining of lower extremity edema, but compared with yesterday is better. He denies nausea, vomiting, diarrhea, constipation. No shortness of breath. No chest pain. OBJECTIVE: Vital Signs: Temperature 98 degrees, pulse 87, respiratory rate 133/91, oxygen saturation 100% on room air. HEENT: Head normocephalic. No trauma. PERRLA. Neck: Supple. No JVD. No masses. Central trachea. Chest: Clear to auscultation. Decreased breath sounds at the bases. No rales. Cardiovascular: RRR. Systolic murmur. Abdomen: Soft, nontender, nondistended. No hepatosplenomegaly. Extremities: Two to three plus lower extremity edema. No clubbing. No cyanosis. Neurological: The patient is alert and oriented x3. No focal neurological deficits. LABORATORIES: Sodium 142, potassium 4.3, chloride 100, bicarbonate 29. BUN 30, creatinine 0.8, glucose 114, calcium 9.2. ASSESSMENT AND PLAN: 1. Congestive heart failure exacerbation. Continue with Lasix intravenous twice a day. Cardiology Department has recommended this; we will continue following their recommendations. This patient is feeling better. Probably this patient can be switched to oral medication either today or tomorrow. 2. Hypertension, stable. Continue with the same management. 3. 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 Aware. Dr. Weber is following this patient. No treatment for now. 4. Chronic obstructive pulmonary disease, not in exacerbation. Continue with the same management. 5. Tobacco abuse. This patient has been highly advised against tobacco abuse. I will continue with daily cessation education. cc: Ace Phelps MD
--- NOTE | 2016-07-18 12:34 | Extremity Venous Study ---
PROCEDURE NAME: Venous U/S Bilateral Legs - 07/15/2016 BILATERAL LOWER EXTREMITY VENOUS DUPLEX AND COLOR FLOW IMAGING STUDY: Using the GE Vivid E9 ultrasound System with a 9 L-D transducer. REFERRING PHYSICIAN: Dr. Brandy Loving. ROOM: [facility]. PATIENT'S AGE: 66-year-old male. C.O.D. BILLER: Iris Kaiser RVT. INDICATIONS: 1. Elevated D-dimer, ICD-10. R94.2. 2. Shortness of breath, ICD-10. R06.02. 3. Swelling of the limb, ICD-10. M79.89. FINDINGS: The right common femoral vein and its branches, deep and superficial femoral veins were satisfactorily imaged. They had flow through them and were compressible. Right popliteal vein and the deep veins below the right knee were all compressible and had flow through them. The superficial veins of the right lower extremity were compressible throughout their length. The left common femoral vein and its branches, deep and superficial femoral veins were also satisfactorily imaged. They had flow through them and were compressible. Left popliteal vein and the deep veins below the left knee were all compressible and had flow through them. The superficial veins of the left lower extremity were compressible throughout their length. INTERPRETATION: No evidence of acute deep or superficial venous thrombosis of the bilateral lower extremities. cc: Kassi Fletcher MD
--- NOTE | 2016-07-18 19:37 | PROGRESS NOTE ---
DATE: 07/18/2016 SUBJECTIVE: Patient denies any shortness of breath or chest discomfort. OBJECTIVE: Vital signs: Blood pressure 135/84, heart rate 88 and regular. Neck: Jugular venous distention is present to angle of jaw. Chest: Clear to auscultation. Cardiac: A regular rate and rhythm without appreciable murmur or gallop. Extremities: Demonstrate 2+ edema. LABORATORY DATA: BUN 30. Creatinine 0.8. IMPRESSION: 1. Acute on chronic systolic heart failure, biventricular. Patient progressively improving. Diuresis appears to have slowed somewhat. Patient still manifests signs of right-sided heart failure. 2. Severe dilated cardiomyopathy. 3. Hypertension. 4. Adrenocortical carcinoma with hepatic metastasis. 5. Chronic obstructive pulmonary disease. 6. Chronic smoking. 7. Recent neck injury. RECOMMENDATIONS: 1. Supplement intravenous Lasix. 2. Increase valsartan as tolerated. cc: Miguel Damon MD
[2016-07-19] MEDS: MS CONTIN PO SCH ×3 (02:24→21:00)
[2016-07-19] MEDS: DUONEB (A & A) INH SCH ×6 (03:05→22:40)
[2016-07-19] MEDS: LASIX IV SCH ×2 (06:30→17:38)
[2016-07-19] MEDS: LOVENOX SUBQ SCH (08:30)
[2016-07-19] MEDS: COREG PO SCH ×2 (08:30→21:00)
[2016-07-19] MEDS: KLOR-CON PO SCH (08:30)
[2016-07-19] MEDS: DIOVAN PO SCH (08:30)
[2016-07-19 09:14] LABS: AGAP 15; BUN 34 mg/dL (8-22); CALCIUM 9.5 mg/dL (8.8-10.2); CHLORIDE 96 mmol/L (98-107); COSMO 294; POTASSIUM 4.2 mmol/L (3.5-5.1); SODIUM 143 mmol/L (136-145); TCO2 32 mmol/L (25-35)
--- NOTE | 2016-07-19 11:09 | PROGRESS NOTE ---
DATE: 07/19/2016 SUBJECTIVE: This patient states that he is feeling better. He is still complaining of lower extremity edema. No shortness of breath. No chest pain. He denies nausea or vomiting. No diarrhea. No constipation. OBJECTIVE: Vital signs: Temperature 97.6, pulse 94, respiratory rate 20, blood pressure 141/80, oxygen saturation 96 on 2 L of nasal cannula. HEENT: Head normocephalic, no trauma. STEFAN. Neck: Supple. He has JVD. No masses. Central trachea. Chest: Clear to auscultation. Decreased breath sounds at the bases. Mild rales. Cardiovascular: RRR. Systolic murmur. Abdomen: Soft, nontender, nondistended. No hepatosplenomegaly. Extremities: 2+ lower extremity edema. No clubbing or cyanosis. Neurologic: The patient is alert and oriented x3. No focal neurological deficits. LABORATORY: Sodium 143, potassium 4.2, chloride 96, bicarbonate 32, BUN 34, creatinine 1.1, glucose 119, calcium 9.5. ASSESSMENT AND PLAN: 1. Congestive heart failure exacerbation. Continue with Lasix but it was increased from twice a day to 3 times a day, 40 mg IV. Cardiology Department is following this patient. Will continue to follow with their recommendations. The patient is feeling better. 2. Hypertension. Stable. Continue with the same management. 3. 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 Aware. Dr. Weber is his oncologist. 4. Chronic obstructive pulmonary disease, not in exacerbation. Continue with same management. 5. Tobacco abuse. This patient has been highly advised against tobacco abuse. I will continue with daily cessation education. cc: Ace Phelps MD
--- NOTE | 2016-07-19 11:43 | PROGRESS NOTE ---
DATE: 07/19/2016 SUBJECTIVE: The patient continues without dyspnea or chest discomfort. OBJECTIVE: Vital Signs: Blood pressure 141/80, heart rate 84 and regular. Neck: Jugular distention is present to the angle of the jaw. Chest: Clear to auscultation. Cardiac Exam: Reveals a regular rate and rhythm without appreciable murmur or gallop. Extremities: Demonstrate 2+ pretibial edema. LAB DATA: Noteworthy for a BUN of 34, creatinine 1.1. IMPRESSION: 1. Acute on chronic systolic heart failure, biventricular. Patient progressively improving with diuresis, but still shows evidence of volume overload. 2. Severe dilated cardiomyopathy. 3. Hypertension. 4. Adrenal cortical carcinoma with hepatic metastases. 5. Chronic obstructive pulmonary disease. 6. Chronic cigarette use. 7. Recent neck injury. RECOMMENDATION: 1. Continue to diurese with intravenous Lasix on an every 12-hour schedule. 2. Continue current valsartan dose 80 mg daily. 3. Continue to manage on an inpatient basis due to significant potential for readmission. cc: Miguel Damon MD
[2016-07-20] MEDS: DUONEB (A & A) INH SCH ×2 (03:40→07:30)
[2016-07-20] MEDS: LASIX IV SCH (05:51)
[2016-07-20 07:37] LABS: AGAP 13; BUN 32 mg/dL (8-22); CALCIUM 9.3 mg/dL (8.8-10.2); CHLORIDE 97 mmol/L (98-107); COSMO 291; POTASSIUM 4.4 mmol/L (3.5-5.1); SODIUM 142 mmol/L (136-145); TCO2 32 mmol/L (25-35)
[2016-07-20 07:42] VITALS: BP 142/98
[2016-07-20] MEDS: COREG PO SCH (09:30)
[2016-07-20] MEDS: DIOVAN PO SCH (09:30)
[2016-07-20] MEDS: MS CONTIN PO SCH (09:30)
[2016-07-20] MEDS: KLOR-CON PO SCH (09:30)
[2016-07-20] MEDS: LOVENOX SUBQ SCH (09:31)
--- NOTE | 2016-07-20 18:02 | DISCHARGE SUMMARY ---
ADMISSION DATE: 07/15/2016 DISCHARGE DATE: 07/20/2016 CONSULTATIONS: 1. Miguel Damon MD with Cardiology. 2. Odalis Weber MD with Hematology/Oncology. PERTINENT PROCEDURES: 1. Bilateral venous Dopplers showed no evidence of acute or deep superficial venous thrombosis. 2. Echocardiogram showed an EF of 20%. 3. Pulmonary arteriogram showed no pulmonary emboli or hepatic masses concerning for primary or secondary malignancy, cardiomegaly with pleural effusions and vascular distention, multiple healing left rib fractures. DISCHARGE DIAGNOSES: 1. Congestive heart failure exacerbation improved. Patient will continue on p.o. Lasix. 2. Hypertension stable. Continue with current management. 3. 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 Aware. Dr. Weber is his oncologist. 4. Chronic obstructive pulmonary disease without exacerbation. Continue home medications. 5. Tobacco abuse. Patient has been educated on smoking cessation as well as the means to quit daily. HOSPITAL COURSE: Mr. Mendosa is a 66-year-old, male with a past medical history of hypertension and adrenal cortical carcinoma with liver metastasis, followed by Dr. Hodgson. He was recently admitted at [facility] at the beginning of May after being thrown off a horse. He was admitted with a C5-C6 cervical fracture as well as 4th through 12th rib fractures. During his admission the patient had an acute episode of congestive heart failure. Prior to this episode he did not have any previous history of CHF. The patient has stated that since his discharge from the hospital for 2-3 weeks he noticed swelling in his legs, shortness of breath on exertion but it has become significantly worse over the past 2-3 days. He has also had a weight gain of 12 pounds. In the ED he was found to be dyspneic with JVD noted as well as 3+ pitting edema to the bilateral lower extremities. He was found to have an elevated D-dimer at 3.57. CT of the chest was performed that ruled out PE. It did show pulmonary edema with bilateral pleural effusions as well as ill-defined liver masses. The patient was admitted for CHF exacerbation. He was started on IV Lasix, daily weights, strict I's and O's, as well as a cardiology consultation and a courtesy consultation to his fusion operator, Dr. Weber. He was also ruled out for DVT. Echocardiogram showed an EF of 20%. The patient did improve with diuresis but still showed some evidence of volume overload. He was continued on IV Lasix. He was started on valsartan as well as his other home medications. The patient is feeling better and he states that he has to be discharged home today because he needs to take care of some business even though we felt like the patient would need a couple of more days of diuresis, however, he states he feels better and he is going home. VITAL SIGNS: Temperature is 98.9 degrees, heart rate 79, respirations 20, blood pressure 142/98, O2 is 100% on room air. DISCHARGE DIET: Healthy heart. DISCHARGE MEDICATIONS: 1. Coreg 6.25 mg p.o. q.12 hours. 2. Lasix 40 mg p.o. b.i.d. 3. Ramona 10/325, 1 each p.o. b.i.d. 4. MS Contin 30 mg p.o. q.12 hours. 5. Potassium chloride 20 mEq p.o. daily. 6. Diovan 80 mg p.o. daily. FOLLOWUP: The patient is being discharged home with self-care. He can follow up with his primary care physician, Dr. Sun Waller, in 7-10 days as well as his primary oncologist, and Dr. Miguel Damon on 08/14/2016. The patient was adamant about leaving today. He had some business to take care of even though we recommended him staying in the hospital through the weekend to continue further diuresis but he has refused. The patient can return to the ED for any worsening of symptoms. DISCHARGE TIME: 30 minutes. Dictated by DELBERT Rizo for Ace Phelps MD cc: Ace Phelps MD
[2016-07-20] MEDS ORDERED: LASIX PO SCH (21:00)
== END 2016-07-20 10:10 | disposition home or self-care (01) ==
LOC: ED 01:32 → 3S 06:33 → SUATTDRO 06:33 → 3S 06:47 → 3N 19:33
PROVIDERS: ATTEND Internal Medicine